=== PATIENT | male | born 1975 | race Caucasian/White ===

== ENCOUNTER 2024-09-14 20:55 | Emergency (ER) | payer OTHER, SELFPAY ==
[2024-09-14 21:01] VITALS: BMI 43.6
[2024-09-14 21:11] LABS: % Basophils 0.7 % (0-2); % Immature Granulocytes 0.4 % (0-0.5); % Lymphocytes 27.8 % (20.5-51.1); % Monocytes 5.7 % (1.7-9.3); % Neutrophils 62.4 % (42.2-75.2); Absolute Basophils 0.1 10^3/uL (0-0.2); Absolute Eosinophils 0.4 10^3/uL (0-0.7); Absolute Immature Granulocytes 0.1 10^3/uL (0-0.05); Absolute Lymphocytes 3.5 10^3/uL (1.2-3.4); Absolute Monocytes 0.7 10^3/uL (0.1-0.6); Hematocrit 46.1 % (39.0-52.0); Mean Corp Hgb Conc. 32.5 g/dL (33.0-37.0); Mean Corpuscular Hgb 27.8 pg (27.0-31.0); Mean Corpuscular Volume 85.4 fL (80.0-94.0); Mean Platelet Volume 9.2 fL (7.4-10.4); Nucleated Red Blood Cells % 0 % (-); Platelet Count 286 10^3/uL (130-400); Red Cell Dist. Width 13.9 % (11.5-14.5); White Blood Cell Count 12.7 10^3/uL (4.8-10.8)
[2024-09-14 21:30] LABS: ALT (SGPT) 26 U/L (0-50); AST (SGOT) 24 U/L (17-59); Albumin 4.3 g/dl (3.5-5.0); Alkaline Phosphatase 82 U/L (38-126); Blood Urea Nitrogen 14 mg/dl (9-20); Calcium 8.7 mg/dl (8.4-10.2); Carbon Dioxide 28 mmol/L (22-30); Chloride 102 mmol/L (98-107); Estimated Creatinine Clearance 105 ml/min; Glucose 108 mg/dl (70-99); Sodium 138 mmol/L (135-145); Total Bilirubin 0.2 mg/dl (0.2-1.3); Total Protein 6.8 g/dl (6.3-8.2); eGFR > 60.00
[2024-09-14 22:00] VITALS: BP 109/64
--- NOTE | 2024-09-14 22:53 | ED.GENMED ---
History of Present Illness
<Emi Ceja PA-C - Last Filed: 09/15/24 00:20>
General
Chief Complaint: Fainting/Passed Out
Source: patient
Exam Limitations: none
Time Seen by Provider: 09/14/24 22:22
Nursing documentation reviewed up to this point in time: agreed with
History of Present Illness
History of Present Illness:
Patient is a 49-year-old male presenting to the emergency department via EMS after syncopal event at home. Patient states that he was sitting on the couch playing video games with his when he started to feel like he was 'fading'. He
reportedly felt lightheaded and as if he was going to pass out. He then reportedly slumped over to his right and had a mild jerking motion. He then came to relatively quickly however his had already called 911. He states he felt that he
could hear her speaking to him while he was slumped over though he was having difficulty responding. Patient denies any preceding chest pain, shortness of breath, headache. He did feel mildly nauseous prior to syncopal event.
Of note�patient did state that he had an edible prior to syncopal episode and was feeling high. He did have a very similar experience of years ago after using marijuana.
Patient was exercising the gym today and his thinks that he may have been dehydrated. However stated he had a full workout without any difficulty. He does note that he had a very salty dinner and then candy after dinner.
Review of Systems
<Emi Ceja PA-C - Last Filed: 09/15/24 00:20>
Review of Systems
Allergies reviewed?: Yes
All Other Systems: ROS reviewed and negative except as documented in HPI and ROS
Phy Exam
<Emi Ceja PA-C - Last Filed: 09/15/24 00:20>
Physical Exam
Physical Exam:
Vitals: Patient's vital signs are stable. Afebrile
General: Patient is well appearing, no acute distress
Skin: Warm and dry, no rashes or lesions
Head: Normocephalic, atraumatic
Eyes: Sclera nonicteric. EOMs intact. No nystagmus.
Throat: Protecting airway
Neck: Normal ROM, no cervical spine tenderness, no meningismus. No JVD
Cardiac: Regular rate and rhythm, no murmurs.
Pulm: Normal respiratory effort, no wheezes, rales, rhonchi heard on exam.
Abdomen: Abdomen soft. No abdominal tenderness.
Extremities: No evidence of cyanosis or edema. Negative Homans' sign bilaterally. No calf tenderness. Palpable DP pulses bilaterally
Neuro: AAOx3. CN II-XII intact. No focal neurologic deficits.
Psychiatric: Normal affect.
Course
<Emi Ceja PA-C - Last Filed: 09/15/24 00:20>
Orders/Labs/Results
Orders:
Orders
09/14/24 20:58
Electrocardiogram (*1) Urgent
Reason for Study: Chest Pain
Cardiac Monitoring- Treatment ONCE
EKG- Treatment ONCE
IV Insert/Care/Rem.- Treatment PRN
O2 Therapy [RESP] Urgent
Titrate/Wean O2 to maintain O2 sat greater than (%): 90
Special Instructions: Maintain sats >/=90%
Pulse Ox/spot Check [RESP] Urgent
Quantity: 1
Special Instructions: ON ROOM AIR
09/14/24 21:04
Complete Blood Count/With Diff Urgent
Comprehensive Metabolic Panel Urgent
09/14/24 23:33
Troponin I Urgent
Abnormal Lab Results
09/14/24
21:04
WBC 12.7 H 10^3/uL
(4.8-10.8)
MCHC 32.5 L g/dL
(33.0-37.0)
Abs Immat Gran (auto) 0.1 H 10^3/uL
(0-0.05)
Absolute Neuts (auto) 8.0 H 10^3/uL
(1.4-6.5)
Absolute Lymphs (auto) 3.5 H 10^3/uL
(1.2-3.4)
Absolute Monos (auto) 0.7 H 10^3/uL
(0.1-0.6)
Glucose 108 H mg/dl
(70-99)
09/14/24 21:04
09/14/24 21:04
Vital Signs
Initial and Last Documented VS:
Initial Vital Signs
Pulse Pulse Ox
60 95
09/14/24 21:02 09/14/24 21:02
Last Documented Vital Signs
Temp Pulse Resp BP Pulse Ox
98.1 F 66 23 121/65 92
09/14/24 23:05 09/14/24 23:30 09/14/24 23:30 09/14/24 23:00 09/14/24 23:15
<Ute Ludwig DO - Last Filed: 09/15/24 00:23>
Orders/Labs/Results
Orders:
Orders
09/14/24 20:58
Electrocardiogram (*1) Urgent
Reason for Study: Chest Pain
Cardiac Monitoring- Treatment ONCE
EKG- Treatment ONCE
IV Insert/Care/Rem.- Treatment PRN
O2 Therapy [RESP] Urgent
Titrate/Wean O2 to maintain O2 sat greater than (%): 90
Special Instructions: Maintain sats >/=90%
Pulse Ox/spot Check [RESP] Urgent
Quantity: 1
Special Instructions: ON ROOM AIR
09/14/24 21:04
Complete Blood Count/With Diff Urgent
Comprehensive Metabolic Panel Urgent
09/14/24 23:33
Troponin I Urgent
Abnormal Lab Results
09/14/24
21:04
WBC 12.7 H 10^3/uL
(4.8-10.8)
MCHC 32.5 L g/dL
(33.0-37.0)
Abs Immat Gran (auto) 0.1 H 10^3/uL
(0-0.05)
Absolute Neuts (auto) 8.0 H 10^3/uL
(1.4-6.5)
Absolute Lymphs (auto) 3.5 H 10^3/uL
(1.2-3.4)
Absolute Monos (auto) 0.7 H 10^3/uL
(0.1-0.6)
Glucose 108 H mg/dl
(70-99)
09/14/24 21:04
09/14/24 21:04
Vital Signs
Initial and Last Documented VS:
Initial Vital Signs
Pulse Pulse Ox
60 95
09/14/24 21:02 09/14/24 21:02
Last Documented Vital Signs
Temp Pulse Resp BP Pulse Ox
98.1 F 66 23 121/65 92
09/14/24 23:05 09/14/24 23:30 09/14/24 23:30 09/14/24 23:00 09/14/24 23:15
<Emi Ceja PA-C - Last Filed: 09/15/24 00:20>
MDM/Problems Addressed
Differential Diagnosis Includes:
Not limited to: Dehydration, vasovagal syncope, cardiac arrhythmia, viral illness,
MDM/Problems Addressed:
Patient is a 49-year-old male presenting after syncopal event at home. No prodromal chest pain, shortness of breath, or headache. He did feel lightheaded and mildly nauseous prior to syncopal event. He did use a marijuana edible earlier this
evening and feels high which she does buy at dispensary. History of similar event after smoking marijuana many years ago. Patient has stable vital signs. On exam�patient is well-appearing, in no apparent distress. Cardio/pulmonary assessment
unremarkable. No focal neurologic deficits. An EKG was obtained in triage shows normal sinus rhythm without acute ischemic changes. Ultimately do suspect vasovagal syncope likely attributable to dehydration and marijuana use. Low suspicion for
ACS or cardiac process. However�will screen with basic labs and troponin. Patient has received a liter of IV fluids. Will closely monitor and reassess. Anticipate discharge home.
Update 12:15 AM: Troponin undetectable. Into reassess patient at bedside he was feeling fine and eager for discharge. His vital signs are stable. He has received a liter of IV fluids. Ultimately suspect vasovagal syncope. Stable for discharge
home with primary care follow-up. Advised to stay well-hydrated avoid any further edibles from supply. Patient's at bedside who agrees with plan all questions answered.
Chronic conditions affecting care:
N/A
Acute Exacerbation and/or Progression of Chronic Illness:
N/A
<Emi Ceja PA-C - Last Filed: 09/15/24 00:20>
*Pulse Oximetry
Patient hypoxic: no
*EKG
Interpreted by ED Provider?: Yes
EKG Intrepretation Date: 09/14/24
Interpretation: normal
Comparison EKG: no comparison EKG present
Heart Rate: 51
Rate: normal
Rhythm: sinus
[place]: normal axis
Interval: normal interval
QRS Pattern: normal QRS
Ischemia: no ischemia
*[employer] Specialist Interpretation
Rate: normal
Interpretation: normal
Heart Rate: 65
Rhythm: sinus
*Critical Care Note
Total Time (30-74mins, 75-104mins- exclusive of procedures): Not Applicable
ED Attending Note
<Emi Ceja PA-C - Last Filed: 09/15/24 00:20>
-
Portions of this chart may have been created with voice recognition software.� Occasional wrong word or��sound alike� substitutions may have occurred due to the inherent limitations of voice recognition software.
<Ute Ludwig, DO - Last Filed: 09/15/24 00:23>
ED Attending Note
Patient seen and examined by attending physician: Yes
I performed the substantive portion of visit, reviewed & personally made and approve the management plan that is documented in note by myself or ANANT.: Yes
I performed a history and physical exam of patient and discussed management with resident, I reviewed resident's note and agree with documented findings and plan of care.: Yes
ED Attending Note:
49-year-old male with history of hypertension presenting after a syncopal episode. Patient reports around 8 PM he ate an edible that he got from a dispensary. He then was playing video games and felt like he was going to pass out. His partner was
next to him, saw him slumped over and had a brief episode of body shaking. Patient came to after the incident. Reports similar event a few years ago after he smoked marijuana. Does report that he had some decreased oral hydration today, felt
dehydrated prior to the event. Denied any prodromal chest pain or difficulty breathing. Denies any cardiac history. Denies fever or recent illness. He is currently asymptomatic.
Vital signs are normal. On exam, resting comfortably, no acute distress or discomfort. Patient had EKG upon arrival, sinus rhythm without acute evidence of ischemia or arrhythmia. He is awake, alert, with unremarkable cardiac and pulmonary exam.
No focal neurologic deficits. Symptoms appear consistent with vasovagal episode, likely brought on by dehydration and concomitant marijuana usage. Will screen with lab. Patient receiving IV fluids for volume depletion.
00:10 -Labs unremarkable. Patient remains hemodynamically stable and asymptomatic. Feel stable for discharge with close interval follow-up with care doctor. Cautioned against edibles. Return precautions discussed and patient verbalized
understanding
Discharge Plan
Departure
Patient Disposition: Home (Routine Discharge)
Date of Disposition: 09/15/24
Time of Disposition: 00:20
Patient with high blood pressure during this ER visit?: No
Condition: Good
Covid-19: Not Applicable
Discharge Problem:
Syncope
Instructions: Syncope (Fainting) (DC), Dehydration in adults - ED discharge instructions
Referrals:
UNKNOWN - PT DOES,NOT KNOW [Family Provider] -
Activity Restrictions/Additional Instructions:
RETURN TO THE EMERGENCY DEPARTMENT WITH ANY FEVERS, CHEST PAIN, SHORTNESS OF BREATH, DIZZINESS/LIGHTHEADEDNESS, REPEAT SYNCOPAL EPISODES, WORSENING IN CURRENT SYMPTOMS, OR ANY OTHER CONCERNS
-As discussed/it is important stay well-hydrated. Eat a balanced diet.
-You should avoid any further edibles from your current supply in case it was related to syncopal event today.
-Follow-up with your primary care doctor for further evaluation/management as needed
Monitor your symptoms closely return to the emergency department with any acute worsening/new symptoms or any other concerns
Interventions
Interventions:
*Risk Screen - Suicide Last Done: 09/14/24 20:59
*General Assessment Last Done: 09/14/24 20:59
*Neglect/Abuse Screening Last Done: 09/14/24 20:59
ED- Fall Risk Assessment Last Done: 09/14/24 20:59
*ED COVID-19 Vaccine History Last Done: 09/14/24 20:59
ED- Cardiac Assessment Last Done: 09/14/24 20:59
ED- Neurological Assessment Last Done: 09/14/24 20:59
Discharge Date and Time
Print Language: CHINESE
[2024-09-14 23:00] VITALS: BP 121/65
[2024-09-15] VITALS: BP 119/67
[2024-09-15 00:02] LABS: Troponin I < 0.012 ng/ml
== END 2024-09-15 00:31 | disposition home or self-care (01) ==
LOC: EMR 20:55
PROVIDERS: Physician Assistant; EMERGENCY PHYSICIAN Student in an Organized Health Care Education/Training Program
DX: R55 Syncope and collapse (principal); R11.0 Nausea; F12.90 Cannabis use, unspecified, uncomplicated
CPT/HCPCS: 99285; 94760; 80053; 84484; 85025; 93005